=== PATIENT | male | born 1985 | race Caucasian/White ===

== ENCOUNTER 2021-03-13 01:33 | Emergency (ER) | payer OTHER, SELFPAY ==
[2021-03-13 01:34] VITALS: BP 139/87; PULSE 110; RESP 24; TEMP 36.7; O2SAT 97; BMI 38.7
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
[2021-03-13 02:02] LABS: Basophils # 0.1 10^3/uL (0.0-0.1); Basophils % 0.4 %; Eosinophils # 0.3 10^3/uL (0.0-0.8); Eosinophils % 2.4 %; Hematocrit 44.9 % (42.0-52.0); Hemoglobin 15.2 g/dL (11.7-16.6); Lymphocytes # 1.6 10^3/uL (0.8-4.8); Lymphocytes % 13.9 %; Mean Corpuscular HGB Conc 33.9 g/dL (30.0-36.0); Mean Corpuscular Hemoglobin 30.6 pg (28.0-34.0); Mean Corpuscular Volume 90.5 fL (80-94); Mean Platelet Volume 9.1 fL (7.4-10.4); Monocytes % 9.1 %; Neutrophils # 8.18 10^3/uL (1.8-7.7); Neutrophils % 73.6 %; Nucleated Red Blood Cells % 0 %; Platelet Count 256 10^3/cmm (130-400); Red Blood Count 4.96 10^6/uL (4.1-5.3); White Blood Count 11.1 10^3/uL (4.0-10.0)
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
[2021-03-13 02:29] VITALS: RESP 24
[2021-03-13] MEDS: morphine 4 mg/mL SDV 1 mL IVP (02:29)
[2021-03-13] MEDS: ondansetron 2 mg/ML SDV 2 mL 4 MG IVP (02:30)
[2021-03-13 02:38] LABS: Alanine Aminotransferase 44 U/L (0-41); Alkaline Phosphatase 114 IU/L (40-130); Anion Gap 13.8 (5-19); Aspartate Amino Transferase 32 U/L (0-40); Blood Urea Nitrogen 13 mg/dL (6-20); Calcium 8.5 mg/dL (8.5-10.5); Carbon Dioxide 23 mmol/L (22-29); Chloride 105 mmol/L (98-107); Globulin 2.5 g/dL (1.3-4.6); Glucose 110 mg/dL (65-115); Osmolality Calculated 287 mOsm/kg (285-295); Potassium 3.8 mmol/L (3.5-5.1); Sodium 138 mmol/L (136-145); Total Bilirubin 0.3 mg/dL (0.15-1.2); Total Protein 6.5 g/dL (6.6-8.7)
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
[2021-03-13] MEDS: iohexol 300 mg/mL 100 mL Btl IV (03:15)
[2021-03-13 03:51] VITALS: BP 154/90; PULSE 99; O2SAT 98
[2021-03-13 04:48] VITALS: BP 156/92; PULSE 102; RESP 20; O2SAT 94
--- NOTE | 2021-03-13 09:00 | DCPLANNER ---
ict managers had message to schedule a follow up appointment for patient with ortho. ict managers called the ortho clinic, spoke with Jigna, gave clinic patients information. ict managers was told that patients information would be printed and reviewed. Clinic will call patient with appointment information.
--- NOTE | 2021-03-16 07:32 | DCPLANNER ---
Patient has a follow up appointment scheduled for Tuesday, March 16, 2021 at 10;[address] Knight at ortho. Clinic will call patient with appointment information.
--- NOTE | 2021-03-18 07:59 | DCPLANNER ---
Patient had a follow up appointment scheduled for 03.16.[address] Knight at [facility] - patient did attend appointment.
== END 2021-03-13 04:49 | disposition home or self-care (01) ==
PROVIDERS: Emergency Provider Emergency Medicine
DX: S42.145A Nondisplaced fracture of glenoid cavity of scapula, left shoulder, initial encounter for closed fracture (principal); V69.9XXA Occupant (driver) (passenger) of heavy transport vehicle injured in unspecified traffic accident, initial encounter
CPT/HCPCS: 70450; 71045; 71260; 72125; 73060; 74177; 80053; 85025; 96374; 96375; 99284; J2270; J2405; Q9967

== ENCOUNTER → 2021-03-16 10:49 | Outpatient (BNVA) | payer OTHER, SELFPAY | PROVIDERS: Referring Provider Emergency Medicine; Visit Provider Specialist | DX: S42.145A Nondisplaced fracture of glenoid cavity of scapula, left shoulder, initial encounter for closed fracture (principal); X58.XXXA Exposure to other specified factors, initial encounter | CPT/HCPCS: 73030 ==

== ENCOUNTER 2021-03-16 14:02 | Outpatient (CLI) | payer SELFPAY | END 2021-03-16 14:03 | disposition home or self-care (01) | LOC: SPT 14:03 | PROVIDERS: Visit Provider Specialist | DX: Z46.89 Encounter for fitting and adjustment of other specified devices (principal); S42.145D Nondisplaced fracture of glenoid cavity of scapula, left shoulder, subsequent encounter for fracture with routine healing; X58.XXXD Exposure to other specified factors, subsequent encounter | CPT/HCPCS: L3670 ==

== ENCOUNTER → 2022-04-29 10:15 | Outpatient (BNVA) | payer SELFPAY | PROVIDERS: Visit Provider Nurse Practitioner Family | DX: E04.9 Nontoxic goiter, unspecified (principal); G47.30 Sleep apnea, unspecified; H93.90 Unspecified disorder of ear, unspecified ear; L65.9 Nonscarring hair loss, unspecified; R53.83 Other fatigue | CPT/HCPCS: 80053; 82310; 83970; 84439; 84443 ==